=== PATIENT | male | born 1970 | race Caucasian/White ===

== ENCOUNTER 2023-06-12 20:45 | Emergency (ER) | payer BC ==
[2023-06-12] MEDS ORDERED: Ondansetron 8 MG in Sodium Chloride 0.9% 100 ML IV STA (20:56)
[2023-06-12] MEDS: HYDROmorphone 1 MG/ML Syringe IVPUSH ONE (21:06)
[2023-06-12] MEDS: Ondansetron 4 MG/2 ML SDV IVPUSH STA (21:07)
[2023-06-12] MEDS: HYDROmorphone 0.5 MG/0.5 ML Syringe IVPUSH ONE (22:43)
== END 2023-06-12 23:30 ==
LOC: CC.ED 20:45 → MERGE 20:45 → CC.ED 23:30
DX: S52.121A Displaced fracture of head of right radius, initial encounter for closed fracture (principal); S53.004A Unspecified dislocation of right radial head, initial encounter; W01.0XXA Fall on same level from slipping, tripping and stumbling without subsequent striking against object, initial encounter
CPT/HCPCS: 73080-RT; 73130-RT; 96374; 96375; 99284; 99284-25; J1170; J2405